=== PATIENT | female | born 1950 | race Caucasian/White ===

== ENCOUNTER 2018-11-06 11:23 | Inpatient (IN) ==
--- NOTE | 2018-11-06 14:11 | PROVIDER DOCUMENTATION ---
HPI-Headache - General Chief Complaint: Neck Pain Stated Complaint: NEEDS MORE TESTING DR JO-ANN HAYES Time Seen by Provider: 11/06/18 13:22 Source: patient Allergies/Adverse Reactions: Patient Allergies Allergy/AdvReac Type Severity Reaction Status Date / Time No Known Allergies Allergy Verified 09/18/12 06:17 Home Medications: Home Medication List Medication Instructions Recorded Confirmed Last Taken Type ENALApril [Vasotec] 5 mg PO HS #0 tablet 09/22/12 06/18/13 06/17/13 Rx Warfarin [Coumadin] 3 mg PO QHS 06/18/13 06/18/13 06/17/13 History Lactobacillus Rhamnosus GG 1 each PO BID #0 capsule 06/21/13 Unknown Rx [Culturelle] Metronidazole [Flagyl] 500 mg PO TID #0 tablet 06/21/13 Unknown Rx Sod Phos Di, Hooker/K Phos Hooker 250 mg PO Q6HR #0 tablet 06/21/13 Unknown Rx [K-Phos Neutral Tablet] Vancomycin [Vancocin] 125 mg PO Q6HR #0 capsule 06/21/13 Unknown Rx - History of Present Illness-Headache Nature of Presenting Problem: THIS IS A 67 YEAR OLD FEMALE WITH MEDICAL HISTORY OF HYPERTENSION, BREAST CANCER STAGE 4 WITH PORT ON COUMADIN WAS INSTRUCTED BY CLINIC TO COME IN TODAY TO RULE OUT MENINGITIS. PATIENT STATES SHE HAS BEEN HAVING NECK AND HEADACHE FOR THE PAST 3 DAYS AND WAS JUST NOW DIAGNOSED WITH SINUSITIS AND WAS GIVEN AN ANTIBIOTICS SHOT. PATIENT DENIES FEVER, CHILL, BLURRY VISION, EAR PAIN, RHINORRHEA, SORE THROAT, CHEST DISCOMFORT, PALPITATION, DYSPNEA, ABDOMINAL DISCOMFORT, NAUSEA, VOMITING, DIARRHEA, CONSTIPATION, MYALGIA, ARTHRALGIA NEW, RASH/LESION, AND HEAT OR COLD INTOLERANCE. Review of Systems - Adult - REVIEW OF SYSTEMS - ADULT Constitutional: reports: no symptoms reported, see HPI Eyes: reports: no symptoms reported, see HPI Ears, Nose, Mouth & Throat: reports: no symptoms reported, see HPI Cardiovascular: reports: no symptoms reported, see HPI Respiratory: reports: no symptoms reported, see HPI Gastrointestinal: reports: no symptoms reported, see HPI Genitourinary: reports: no symptoms reported, see HPI Musculoskeletal: reports: no symptoms reported, see HPI, neck pain Integumentary: reports: no symptoms reported, see HPI Neurological: reports: headache/migraines Psychiatric: reports: no symptoms reported, see HPI Endocrine: reports: no symptoms reported, see HPI Hematologic/Lymphatic: reports: no symptoms reported, see HPI Allergic/Immunologic: reports: no symptoms reported, see HPI Past History - Adult - PAST MEDICAL HISTORY-ADULT Review of Records: reports: Old Records Reviewed Physical Exam- Neurological - Physical Exam-Neuro Initial Vital Signs Reviewed: Yes General Appearance: alert, mild distress Eye Exam: bilateral eye: normal inspection, PERRL, EOMI HENMT: normocephalic/atraumatic, moist mucous membranes, normal ENT inspection Head Injury: no evidence of injury. 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 Exam: normal hearing, normal speech, PERRL Neurologic: grossly normal Integumentary: normal color, normal turgor, warm/dry Psych/Mental Status: normal mood/affect, normal thought content, normal thought process, oriented x 3 - Glascow Coma Scale Best Eye Response: (4) open spontaneously Best Verbal Response: (5) oriented Best Motor Response: (6) obeys commands Progress - PLAN OF CARE/RESULTS Progress/Plan/Lab Results: Vital Signs - 8 hr 11/06/18 11:37 Temperature 98.6 F Pulse Rate 89 Respiratory Rate 16 Blood Pressure 147/80 O2 Sat by Pulse Oximetry 98 Laboratory Results - last 24 hr 11/06/18 11/06/18 11/06/18 14:12 14:12 14:40 WBC 6.96 RBC 4.81 Hgb 13.8 Hct 41.6 MCV 86.5 MCH 28.7 MCHC 33.2 RDW Std Deviation 14.2 Plt Count 257 MPV 9.9 Immature Gran % (Auto) 0.3 Neut % (Auto) 53.7 Lymph % (Auto) 28.6 Hooker % (Auto) 14.7 H Eos % (Auto) 2.3 Baso % (Auto) 0.4 Immature Gran # (Auto) 0.02 Neut # (Auto) 3.74 Lymph # (Auto) 1.99 Hooker # (Auto) 1.02 H Eos # (Auto) 0.16 Baso # (Auto) 0.03 PT INR PTT (Actin FS) Sodium 136 Potassium 4.5 Chloride 98 Carbon Dioxide 24 L Anion Gap 14 BUN 17 Creatinine 0.9 Estimated GFR/1.73 m2 > 60 BUN/Creatinine Ratio 19 Glucose 78 Calculated Osmolality 272 Calcium 9.5 Total Bilirubin 0.28 AST 22 ALT 16 Alkaline Phosphatase 77 Total Protein 6.8 Albumin 4.2 Globulin 2.6 Albumin/Globulin Ratio 1.6 Urine Source CLEAN CATCH Urine Color YELLOW Urine Turbidity CLEAR Urine pH 6.5 Ur Specific [place] 1.009 Urine Protein NEGATIVE Ur Glucose (Stick) NEGATIVE Ur Ketones (Stick) 10 A Urine Blood NEGATIVE Urine Nitrite NEGATIVE Urine Bilirubin NEGATIVE Urobilinogen Dipstick NORMAL Urine Leukocytes TRACE A Urine WBC (Auto) <10 Urine RBC (Auto) <10 U Epithel Cells (Auto) <10 Urine Bacteria (Auto) NEGATIVE Fluid Source Fluid Appearance Fluid WBC Fluid RBC CSF Glucose CSF Total Protein 11/06/18 11/06/18 11/06/18 14:40 16:05 16:05 WBC RBC Hgb Hct MCV MCH MCHC RDW Std Deviation Plt Count MPV Immature Gran % (Auto) Neut % (Auto) Lymph % (Auto) Hooker % (Auto) Eos % (Auto) Baso % (Auto) Immature Gran # (Auto) Neut # (Auto) Lymph # (Auto) Hooker # (Auto) Eos # (Auto) Baso # (Auto) PT 13.6 INR 0.97 PTT (Actin FS) 40.7 Sodium Potassium Chloride Carbon Dioxide Anion Gap BUN Creatinine Estimated GFR/1.73 m2 BUN/Creatinine Ratio Glucose Calculated Osmolality Calcium Total Bilirubin AST ALT Alkaline Phosphatase Total Protein Albumin Globulin Albumin/Globulin Ratio Urine Source Urine Color Urine Turbidity Urine pH Ur Specific [place] Urine Protein Ur Glucose (Stick) Ur Ketones (Stick) Urine Blood Urine Nitrite Urine Bilirubin Urobilinogen Dipstick Urine Leukocytes Urine WBC (Auto) Urine RBC (Auto) U Epithel Cells (Auto) Urine Bacteria (Auto) Fluid Source * Fluid Appearance CLEAR Fluid WBC 7 Fluid RBC 0 CSF Glucose 51 CSF Total Protein 11/06/18 16:05 WBC RBC Hgb Hct MCV MCH MCHC RDW Std Deviation Plt Count MPV Immature Gran % (Auto) Neut % (Auto) Lymph % (Auto) Hooker % (Auto) Eos % (Auto) Baso % (Auto) Immature Gran # (Auto) Neut # (Auto) Lymph # (Auto) Hooker # (Auto) Eos # (Auto) Baso # (Auto) PT INR PTT (Actin FS) Sodium Potassium Chloride Carbon Dioxide Anion Gap BUN Creatinine Estimated GFR/1.73 m2 BUN/Creatinine Ratio Glucose Calculated Osmolality Calcium Total Bilirubin AST ALT Alkaline Phosphatase Total Protein Albumin Globulin Albumin/Globulin Ratio Urine Source Urine Color Urine Turbidity Urine pH Ur Specific [place] Urine Protein Ur Glucose (Stick) Ur Ketones (Stick) Urine Blood Urine Nitrite Urine Bilirubin Urobilinogen Dipstick Urine Leukocytes Urine WBC (Auto) Urine RBC (Auto) U Epithel Cells (Auto) Urine Bacteria (Auto) Fluid Source * Fluid Appearance Fluid WBC Fluid RBC CSF Glucose CSF Total Protein 30.2 Orders Category Date Time Status Nursing [place] [place] DIRECTED Care 11/06/18 13:[address] HEAD W/O CONTRAST [CT] Stat Exams 11/06/18 18:[address] MAXILLOFACIAL(SINUS) W/O CO [CT] Stat Exams 11/06/18 18:27 Ordered ANAEROBIC CULTURE [RM] Stat Lab 11/06/18 18:13 Uncollected BLOOD CULTURE [BLDCUL] Stat Lab 11/06/18 14:40 Results CBC WITH ELECTRONIC DIFF [HEME] Stat Lab 11/06/18 14:40 Completed COMPREHENSIVE METABOLIC PANEL [CHEM] Stat Lab 11/06/18 14:12 Completed CRYPTOCOCCAL ANTIGEN -CSF [HH] Stat Lab 11/06/18 16:05 Received CSF COUNT [CELL CNT] Stat Lab 11/06/18 16:05 Completed GLUCOSE CSF [BF CHEM] Stat Lab 11/06/18 16:05 Completed GRAM STAIN [DIREX] Stat Lab 11/06/18 16:05 Received HERPES SIMPLEX VIRUS PCR CSF [COSTA] Stat Lab 11/06/18 16:05 Received MENINGITIS ENCEPHALITIS CSF [HH] Stat Lab 11/06/18 16:05 Received PROTEIN CSF [BF CHEM] Stat Lab 11/06/18 16:05 Completed PT [PROTIME WITH INR] [COAG] Stat Lab 11/06/18 14:40 Completed PTT [COAG] Stat Lab 11/06/18 14:40 Completed URINALYSIS W/POSS RFLX CULT [URINALYSIS] Stat Lab 11/06/18 14:12 Completed URINE CULTURE [] Routine Lab 11/06/18 14:41 Received VDRL CSF [SHICKLEY] Stat Lab 11/06/18 16:05 Received Ampicillin 2 gm/Ns Med 11/06/18 16:16 Discontinued 2 gm in 100 ml IV NOW CefTRIAXONE [Rocephin] 2 gm Med 11/06/18 16:17 Discontinued 0.9% Sodium Chloride Inj [Ns] 50 ml IV NOW Lidocaine 1% [Xylocaine 1%] Med 11/06/18 15:31 Discontinued 50 ml INJ NOW ONE Pharmacy Order [Vancomycin IV Per Pharmacy] Med 11/06/18 16:30 Active 1 each MISC DIRECTED Vancomycin 1,500 mg Med 11/06/18 17:00 Active 0.9% Sodium Chloride Inj [Ns] 250 ml IV ONCE Result Diagrams: 11/06/18 14:40 11/06/18 14:12 - REASSESSMENT Reassessment #1 Time Reassessed: 18:22 Status: other (STIFF NECK WITH BRUDZINSKI AND CSF WITH WBC OF 7MM3 (NORMAL RANGE 0-5MM3); PATIENT WAS STARTED ON AMP/CEF/VAN IMMEDIATELY AFTER LP; WILL CALL HOSPITALIST.) Reassessment #2 Time Reassessed: 18:28 Status: other (APPRECAITE HOSPITALIST ASSITSANC.E) Procedures - LUMBAR PUNCTURE Procedure, Risk, Benefits and Alternatives discussed with:: Patient Consent Form Signed?: Yes Time-Out Verification Completed?: Yes Patient Position: Lying in position Insertion Site: L4-5 Site Prep: Betadine Anesthetic: 1%, Lidocaine/Xylocaine Volume of Anesthetic (ml's): 5 Procedure Successful?: Yes (PERFORMED BY DR. PANG AND DR. BAEZ.) Departure - Departure Date of Disposition Decision: 11/06/18 Time of Disposition Decision: 18:28 DIAGNOSIS: Bacterial meningitis Disposition: ADMITTED INPATIENT 09 Certified Medical Emergency: Emergent Condition: Fair Referrals and Follow-Ups: None,PCP [Primary Care Provider] - - Critical Care Note This patient required my direct & personal management of CC.: No Attestation - Physician/ CHARLES Attestation Patient care was provided by Advanced Practice Provider:: No The physician spent face to face time with patient:: Yes Advanced Practice Provider documentation review:: Supervising physician onsite and consulted in the evaluation and care of this patient. The physician did have a face to face encounter with the patient.
[2018-11-06 14:31] LABS: URINE SOURCE CLEAN CATCH
[2018-11-06 14:38] LABS: BILIRUBIN URINE NEGATIVE (NEGATIVE); BLOOD URINE NEGATIVE (NEGATIVE); COLOR YELLOW; GLUCOSE URINE NEGATIVE (NEGATIVE); KETONE URINE 10 mg/dL (NEGATIVE); LEUKOCYTES URINE TRACE (NEGATIVE); NITRITE URINE NEGATIVE (NEGATIVE); PH URINE 6.5; PROTEIN URINE NEGATIVE (NEGATIVE); SP GRAVITY URINE 1.009; TURBIDITY URINE CLEAR (CLEAR); UROBILINOGEN URINE NORMAL (NORMAL)
[2018-11-06 14:41] LABS: UR EPITHELIAL CELLS <10 /HPF (<10); URINE BACTERIA NEGATIVE /HPF; URINE RBC <10 /HPF (<10); URINE WBC <10 /HPF (<10)
[2018-11-06 14:54] LABS: BASO# 0.03 X1000 (0.0-0.2); BASO% 0.4 % (0.0-0.8); EOS# 0.16 X1000 (0.0-0.7); EOS% 2.3 % (0.0-10.0); HEMATOCRIT 41.6 % (37.0-47.0); HEMOGLOBIN 13.8 g/dL (12.0-16.0); IMM GRAN# 0.02 X1000 (0.0-0.04); IMM GRAN% 0.3 % (0.0-0.5); LYMPH# 1.99 X1000 (1.2-3.4); LYMPH% 28.6 % (20.5-51.1); MCH 28.7 PG (27-31); MCHC 33.2 g/dL (33-37); MCV 86.5 FL (81-99); MONO# 1.02 X1000 (0.11-0.59); MONO% 14.7 % (1.7-9.3); MPV 9.9 FL (7.4-10.4); NEUT# 3.74 X1000 (1.4-6.5); NEUT% 53.7 % (42.2-75.2); PLT 257 X1000 (130-400); RBC 4.81 XMIL (4.2-5.4); RDW 14.2 % (11.5-14.5); WBC 6.96 X1000 (4.8-10.8)
[2018-11-06 15:00] LABS: INR 0.97; PROTIME 13.6 Seconds (11.0-16.0)
[2018-11-06 15:01] LABS: PTT 40.7 Seconds (22.3-41.8)
[2018-11-06 15:05] LABS: AGAP 14; ALB/GLOB RATIO 1.6; ALBUMIN 4.2 g/dL (3.5-5.0); ALKALINE PHOSPHATASE 77 U/L (32-104); BUN 17 mg/dL (8-22); CALCIUM 9.5 mg/dL (8.8-10.2); CHLORIDE 98 mmol/L (98-107); COSMO 272; CREATININE 0.9 mg/dL (0.5-0.9); ESTIMATED GFR > 60; GLUCOSE 78 mg/dL (70-104); GOT 22 U/L (10-30); GPT 16 U/L (10-36); POTASSIUM 4.5 mmol/L (3.5-5.1); SODIUM 136 mmol/L (136-145); TCO2 24 mmol/L (25-35); TOTAL BILIRUBIN 0.28 mg/dL (0.20-1.00); TOTAL PROTEIN 6.8 g/dL (6.3-8.3)
[2018-11-06] MEDS ORDERED: XYLOCAINE 1% INJ ONE (15:31)
[2018-11-06] MEDS ORDERED: AMPICILLIN 2 GM/NS 2 GM/100 ML IVPB IV ONE (16:16)
[2018-11-06] MEDS ORDERED: ROCEPHIN 2 GM in NS 50 ML IV ONE (16:17)
[2018-11-06] MEDS ORDERED: VANCOMYCIN IV PER PHARMACY MISC SCH (16:30)
[2018-11-06] MEDS ORDERED: VANCOMYCIN 1,500 MG in NS 250 ML IV ONE (17:00)
[2018-11-06 17:10] LABS: APPEARANCE CLEAR; RBC BF 0 /cumm
[2018-11-06 17:11] LABS: WBC BF 7 /cumm
[2018-11-06 17:17] LABS: GLUCOSE CSF 51 mg/dL (39-75)
[2018-11-06 17:20] LABS: PROTEIN CSF 30.2 mg/dL (15-45)
[2018-11-06] MEDS ORDERED: MAXIPIME 2 GM in NS 100 ML IV ONE (18:58)
--- NOTE | 2018-11-06 20:03 | Diag Imaging Result Doc PS360 ---
CT HEAD W/O CONTRAST, CT MAXILLOFACIAL(SINUS) W/O CO - 11/06/2018 INDICATION: SINUS INFECTION AND MENINGITIS COMPARISON: None FINDINGS: Head CT: The ventricles and sulci are normal in size and contour. No intracranial mass or hemorrhage. The skull is intact. The sinuses, mastoids, and middle ears are clear. Cervical spine: There is chronic appearing deformity of the nasal bones. Negative sinuses no acute fractures. IMPRESSION: Negative exam. This exam was performed using automated exposure control, adjustment of mA or kV according to patient size, and/or use of iterative reconstruction technique Electronically signed by Uriel Siddiqui 11/06/2018 8:01 PM
[2018-11-06] MEDS ORDERED: ZOFRAN IV PRN (20:14)
[2018-11-06] MEDS: NS 1,000 ML IV SCH (20:40)
[2018-11-06] MEDS: NORCO-7.5 PO PRN (20:45)
[2018-11-06] MEDS: FLEXERIL PO SCH (20:45)
[2018-11-06] MEDS: PROTONIX IV SCH (20:45)
[2018-11-06] MEDS: SODIUM CHLORIDE 0.9% INJ SCH (20:45)
[2018-11-06] MEDS ORDERED: MAXIPIME 1 GM in NS 50 ML IV SCH (20:53)
[2018-11-06] MEDS: CULTURELLE PO SCH (22:50)
[2018-11-06] MEDS: VASOTEC PO SCH (22:50)
[2018-11-06] MEDS: COUMADIN PO SCH (22:50)
[2018-11-07 04:58] LABS: BASO# 0.03 X1000 (0.0-0.2); BASO% 0.5 % (0.0-0.8); EOS# 0.17 X1000 (0.0-0.7); EOS% 2.7 % (0.0-10.0); HEMATOCRIT 37.3 % (37.0-47.0); HEMOGLOBIN 12.4 g/dL (12.0-16.0); LYMPH# 1.89 X1000 (1.2-3.4); LYMPH% 30.2 % (20.5-51.1); MCHC 33.2 g/dL (33-37); MCV 87.1 FL (81-99); MONO# 0.82 X1000 (0.11-0.59); MONO% 13.1 % (1.7-9.3); MPV 9.7 FL (7.4-10.4); NEUT# 3.35 X1000 (1.4-6.5); NEUT% 53.5 % (42.2-75.2); PLT 224 X1000 (130-400); RBC 4.28 XMIL (4.2-5.4); WBC 6.26 X1000 (4.8-10.8)
[2018-11-07 05:01] LABS: INR 1.02; PROTIME 14.3 Seconds (11.0-16.0)
[2018-11-07 05:23] LABS: AGAP 7; ALB/GLOB RATIO 1.3; ALBUMIN 3.3 g/dL (3.5-5.0); ALKALINE PHOSPHATASE 61 U/L (32-104); BUN 19 mg/dL (8-22); CALCIUM 8.6 mg/dL (8.8-10.2); CHLORIDE 103 mmol/L (98-107); COSMO 275; CREATININE 0.8 mg/dL (0.5-0.9); ESTIMATED GFR > 60; GLUCOSE 83 mg/dL (70-104); GOT 14 U/L (10-30); GPT 12 U/L (10-36); POTASSIUM 4.1 mmol/L (3.5-5.1); SODIUM 137 mmol/L (136-145); TCO2 27 mmol/L (25-35); TOTAL BILIRUBIN 0.15 mg/dL (0.20-1.00); TOTAL PROTEIN 5.9 g/dL (6.3-8.3)
[2018-11-07] MEDS: FLEXERIL PO SCH ×3 (05:50→21:11)
[2018-11-07] MEDS: NORCO-7.5 PO PRN ×3 (05:52→19:38)
--- NOTE | 2018-11-07 06:59 | HISTORY AND PHYSICAL ---
DATE: 11/06/2018 PRIMARY CARE PHYSICIAN: (Dr. Morrow; however, he has not seen this provider in over 4 years). GASKET INSPECTOR/ONCOLOGIST: Dr. Nichols. PRESENTING COMPLAINT: Chills, neck pain and headaches. HISTORY OF PRESENTING COMPLAINT: Ms. Whyte is a 67-year-old female with a history of left breast cancer status post mastectomy and currently on weekly Herceptin, follows up with Dr. Nichols. She seems to have been in her regular state of health until about a week now, she started having chills and runny nose, she thought she was coming down with the flu. Subsequently she started having also neck pain. According to Ms. Whyte, the neck pain became progressively severe that she had to come to the ER for investigations. She said the neck pain was stiff, it fell like some cramping, it occasionally radiated to the back of her head giving her sensation of headaches. She said both the neck pain and the headaches went up to about 10/ 10. It is made worse with neck movement, but not with any light. She took ibuprofen which did not make any improvement. She also said she had some remote nausea sensation as well as throat pain. Ms. Whyte herself was pretty much all over the place in terms of her symptomatology; however, I think the main issue is that she has been having neck pains and did have preceding viral type of illness. The patient presented to the emergency department, she was evaluated they thought there could be some possible meningitis, so an LP was done, only 7 WBC was reported. PAST MEDICAL HISTORY: 1. Left breast cancer status post mastectomy. 2. Hypertension. 3. Sinusitis. PAST SURGICAL HISTORY: 1. Left mastectomy with reconstruction surgery. 2. Port placement. 3. Right lower lung lobectomy for metastatic breast cancer. HOME MEDICATIONS: Include enalapril 5 mg daily, and Coumadin 3 mg. SOCIAL HISTORY: The patient denies any tobacco use or illicit drug use. REVIEW OF SYSTEMS: Fourteen point review of system conducted with Ms. Whyte is unremarkable except what we have in the HPI. Specifically, she denies any chest pain. No cough, no expectoration. No abdominal pain, no diarrhea and no urinary symptoms. She does, however, state her throat was hurting some. PHYSICAL EXAMINATION: Vital Signs: Blood pressure is currently 189/81, pulse is 86, respiration is 16, temperature is 98.6 degrees. General: Ms. Whyte is a 67-year-old female. She was in bed. No distress. HEENT: Mucosa is pink and moist. Anicteric. Acyanotic. Neck: Supple. There was no JVD. Trachea was midline. No thyromegaly. HEENT: Head is normocephalic and atraumatic. There is however some tenderness palpating the posterior neck especially over C6- C7. There is also remarkable paraspinal muscle spasms and tenderness. Chest/ Respiratory: There is good air entry bilaterally. No crepitations. No rhonchi. There is no accessory muscle use. Cardiovascular: Regular rate and rhythm. No murmurs, no rubs, no gallops. Gastrointestinal: Abdomen is soft, is nontender. Bowel sounds are present. There is no hepatosplenomegaly. Extremities: No pedal edema. Distal pulses present. Chest wall positive for right upper chest port in place. Inside the mouth I did not see any tonsil swelling or erythematous changes. Central Nervous System: The patient is awake, alert, and oriented. Executive function seems to be intact. Motor is 5/5 in all extremities. Sensation is intact. I did not explore cerebellar function. Psychiatric: The patient is a little anxious, but very cooperative and seems to have very good judgment and insight. The daughter was at the bedside at the time of the encounter. LABORATORY DATA: WBC is 6.96, hemoglobin is 13.8, platelet count of 257,000. Chemistry is also reviewed. Sodium is 136, potassium is 4.5, chloride 98, bicarbonate is 24. CSF analysis shows WBC 7, RBCs 0, glucose is 51, and total protein is 30. I did not see any differentials on the WBC. IMAGING STUDIES: A CT scan of the head is negative. A maxillofacial CT scan is negative. ASSESSMENT: Ms. Whyte is a 67-year-old female with a history of remote breast cancer on weekly Herceptin, comes in with about a week history of generalized weakness , chills and neck pain. Initial assumption was meningitis; however, after a thorough physical examinations and investigations I think she probably has cervical spondylosis with paraspinal muscle spasm. It is also plausible to continue investigating possibility of meningitis. 1. Suspected meningitis. So far the fluid analysis is quite inconclusive and I do not think its a bacterial meningitis. There is still a possibility that it could be a viral meningitis; however, the white cell count on cerebrospinal fluid is remarkably low for anything. In any case, Infectious Disease has been consulted. We started the patient on antibiotics and we will await for Infectious Disease to evaluate the patient. 2. Cervicalgia with cervical paraspinal muscle tenderness. I think the patient does have musculoskeletal pain which is probably playing more to her symptomatology than an underlying infection. She probably has a cervical spondylosis, which has gotten worse. She would need a CT scan of the cervical spine to rule out any other possibilities. We will do this tomorrow morning. 3. History of breast cancer on weekly Herceptin. We will get her oncology Dr. Nichols notified. 4. Uncontrolled hypertension. The patient has been started on her enalapril and we will continue titrating this. We will also add another agent if it does not get better control. 5. History of situational anxiety noted. PLAN: So in general, Ms. Whyte is going to be admitted to the medical floor. She still will be under respiratory precautions until we finally rule in or out the diagnosis of meningitis. She is currently on antibiotics. ID has been consulted. We will also consult her oncologist, and we will follow up with the cultures. She is going to be on her Coumadin for DVT prophylaxis. She is also going to be on PPI for GI prophylaxis, and gentle hydration overnight. We will modify and give further recommendations as other data become available. cc: Pedro Abdi MD MTDD
[2018-11-07] MEDS ORDERED: MAXIPIME 1 GM in NS 50 ML IV SCH (08:15)
--- NOTE | 2018-11-07 09:15 | INFECTIOUS DISEASE CONSULT REP ---
DATE: 11/07/2018 CONCLUSION: The patient may have meningitis. RECOMMENDATION: Treat with vancomycin, cefepime and ampicillin pending lab results. DISCUSSION: The patient, for 6 to 8 weeks, has intermittently had some headaches and neck pain. She does not remember having fever. In the past 4 days, it became very intense , and she came to the emergency room. A spinal tap was done. It showed that there were 7 white cells, the glucose was 51, and the protein was 30. CT scan of the sinuses was negative. CT scan of the head also was negative. The patient, this morning, seems to be having less pain. She did not have a fever during the night. PAST MEDICAL HISTORY/REVIEW OF SYSTEMS: Eyes and Ears: The patient does not have any problems hearing or seeing. Neck: See present illness. Respiratory: No cough or shortness of breath. Cardiac: No chest pain or palpitations. GI: No nausea, vomiting, or diarrhea. : No dysuria or flank pain. Endocrine: The patient does not have diabetes or thyroid problems. Neurologic: See present illness. EVENT STAFF HISTORY: She is a 3, para 3, AB 0. She has had a tubal ligation. PREVIOUS HOSPITALIZATIONS/OPERATIONS: She has had bilateral mastectomies and reconstruction. She has been admitted with Clostridium difficile. She has had removal of part of her right lung because of breast cancer that metastasized to the lung. She has had two Port-A- Caths placed. The current one is on the right side. MEDICAL DISEASES: Positive for breast cancer, which is metastatic, and hypertension. INFECTIOUS DISEASE HISTORY: Positive for pneumonia and UTI. The patient also has had Clostridium difficile diarrhea. FAMILY HISTORY: Positive for diabetes mellitus, hypertension, and cancer. SOCIAL HISTORY: [place] She is a . She lives alone. She has a dog as a pet. She does not have any allergies. She occasionally smokes cigarettes and drinks wine. She does not abuse drugs. She is retired. ALLERGIES: The patient has no known drug allergies. MEDICATIONS: Medications taken at home include the following: Vasotec, Culturelle, Flagyl, vancomycin, and Coumadin. PHYSICAL EXAMINATION: Vital Signs: Temperature is 98 degrees, pulse 80, respirations 12, blood pressure 120/50. The patient is 5 feet 6 inches tall, weighs 138 pounds. General: This is a healthy-appearing, elderly female. She is in no acute distress at this time. HEENT: She can hear my spoken words and see near objects. Sinuses are not tender. She does not have any white coating on her tongue. Neck: She can move her neck fairly well. It is a little bit painful for her. I did not palpate any masses or lymphadenopathy in the neck. Lungs: Clear to auscultation. Cardiovascular: Heart rate is regular. Thorax: The patient has a Port-A-Cath present on the right side. There is no erythema or drainage coming from it, and the site also is not tender. Lungs: Clear to auscultation. Cardiovascular: Heart rate is regular. I did not hear any murmurs. Abdomen: Soft and nontender. Neurologic: The patient is alert. She can move her extremities. There is no tremor. Her sensation is intact to touch. Her memory as regarding her medical history is intact. Integument: No rash seen. CONCLUSION: The patient was admitted to the hospital with neck pain and chills and headache. Her cerebrospinal fluid has 7 white cells in it. The protein is not elevated, and the glucose is not low. I think it is doubtful that the patient has meningitis, but I cannot rule it out for certain. RECOMMENDATIONS: I agree with giving the patient antibiotics. I was called last night, and I told the physician that I would suggest ordering vancomycin, cefepime, and ampicillin, which I have done today by increasing the dose of cefepime and ordering ampicillin. I have also ordered a chest x-ray and x-ray of the cervical spine, and I have started the patient on ampicillin intravenously. Thank you for the consult. cc: Vamsi Arias MD [facility]
--- NOTE | 2018-11-07 09:31 | HEMO/ONC CONSULTATION ---
DATE: 11/07/2018 CHIEF COMPLAINT: We have been consulted for further management. The patient has metastatic breast cancer. HISTORY OF PRESENT ILLNESS: Ms. Whyte is a 67-year-old female that presented to the emergency department complaining of severe neck and headache that has been going on for the past 3 days. The patient was recently diagnosed with sinusitis and given antibiotics per primary care provider. The patient denied any fevers. Patient had some chills over the past few days. Patient thought she was developing the flu. The patient denies any shortness of breath. No nausea, no vomiting, no diarrhea. Due to having severe neck pain with headache, the patient had a lumbar puncture performed while in the emergency department, and was admitted for possible bacterial meningitis and further evaluation at that time. The patient is well known to us in our clinic where she follows up for metastatic breast cancer. She is on weekly Herceptin. The patient has had bilateral mastectomies with reconstruction in 2000. She had DCIS of left breast cancer status post mastectomy reconstruction in October 2005. She had metastasis with solitary right lung nodule status post lobectomy. It was ER/WA negative, HER-2/DEBORAH positive, status post AC and Taxol. The patient began Herceptin in May 2006. She had a catheter-related SVC in August 2012 and she has been on Coumadin for prophylaxis. The patient has been asymptomatic. No evidence of disease for quite some time. Her last dose of Herceptin was given on 11/04/2018. PAST MEDICAL HISTORY: 1. Metastatic breast cancer. 2. Hypertension. 3. Sinusitis. PAST SURGICAL HISTORY: 1. Bilateral mastectomy with breast reconstruction. 2. Port placement. 3. Right lower lung lobectomy due to metastatic cancer. SOCIAL HISTORY: Patient denies any tobacco, alcohol or illicit drug use. FAMILY HISTORY: Noncontributory. HOME MEDICATIONS: Vasotec, Culturelle, Flagyl, Coumadin. REVIEW OF SYSTEMS: Negative as mentioned in HPI. PHYSICAL EXAM: Vital Signs: Temperature 98.6 degrees, heart rate 72, blood pressure 128/49, satting 94% on room air. General: Patient is awake, lying in bed. Complained of increased amounts of neck pain and headache. HEENT: Anicteric. Pupils PERRLA. Mucous membranes moist. Neck: Supple. No JVD. Trachea is midline. She also has some tenderness palpating the posterior neck. Lymph node survey: No palpable lymphadenopathy. Chest: Bilateral breath sounds. Clear to auscultation. Cardiovascular: S1, S2. Regular rate and rhythm. Abdomen: Soft, nontender. Bowel sounds present in all 4 quadrants. No hepatosplenomegaly noted. Skin: Warm, dry, and intact. No petechiae, no clubbing, no rashes, no cyanosis. Neurologic: Alert and oriented x3. No focal deficits noted. LABORATORY DATA: White blood cell count 6.26, hemoglobin 12.4, hematocrit 37.3 , platelets are 224. Potassium 4.1, BUN 19, creatinine 0.8. RADIOLOGICAL RESULTS: CT of the head normal. Maxillofacial CT is a negative exam. ASSESSMENT AND PLAN: 1. Metastatic breast cancer to the lung: The patient has been without any evidence of disease clinically for quite some time. Tumor markers count has been within normal limits. The patient has been on Herceptin weekly. Her last dose was given on 2018. The patient has been tolerating Herceptin very well. Once patient is discharged, we will continue her weekly Herceptin. Continue to monitor. 2. Possible meningitis: Infectious Disease has been consulted continue antibiotics per their recommendations. 3. Severe headache and neck pain: Continue pain management per primary medical team. 4. Hypertension: Continue home medications. Continue recommendations per patient's primary medical team. Plan of care discussed with Dr. Nichols. Dictated by QUINCY Hendrix for Duong Nichols MD cc: QUINCY Hendrix MD [facility]
--- NOTE | 2018-11-07 11:01 | Diag Imaging Result Doc PS360 ---
CHEST-2 VIEWS - 11/07/2018 INDICATION: pneumonia COMPARISON: 09/16/2012 FINDINGS: Stable right chest port in good position. Stable bilateral breast implants. Stable lymph node dissection clips in the left axilla. There is a stable dense area of pleural-based scarring at the right apex. No infiltrates. No pneumothorax or pleural effusion. Heart size is top normal. IMPRESSION: No acute disease or change from prior. Electronically signed by Uriel Siddiqui 11/07/2018 10:59 AM
--- NOTE | 2018-11-07 11:13 | Diag Imaging Result Doc PS360 ---
EXAM: CERVICAL SPINE 2-VIEWS 11/07/2018 HISTORY: neck pain TECHNIQUE: Cervical spine AP and lateral COMMENT: There is anterior osteophyte at the C4-5 level and posterior and anterior osteophyte formation with disc space narrowing at C5-6 and C6-7. There is uncovertebral arthropathy particularly at the C4-5 and C5-6 levels. Hypertrophic facet disease is present at C3-4 on the left. IMPRESSION: Degenerative changes as described. No evidence of acute bony disease. Electronically signed by Dread Goldberg 11/07/2018 11:11 AM
[2018-11-07] MEDS: CULTURELLE PO SCH ×2 (11:19→21:12)
[2018-11-07] MEDS: AMPICILLIN 2 GM/NS 2 GM/100 ML IVPB IV SCH ×3 (11:19→22:36)
[2018-11-07] MEDS: NS 1,000 ML IV SCH (11:19)
[2018-11-07] MEDS: MAXIPIME 2 GM in NS 50 ML IV SCH ×2 (12:17→21:09)
[2018-11-07] MEDS ORDERED: AYR NASAL SPRAY NAS PRN (12:57)
[2018-11-07] MEDS: VANCOMYCIN 1 GM/NS 1 GM/250 ML IVPB IV SCH (13:36)
[2018-11-07] MEDS: COUMADIN PO SCH (21:11)
[2018-11-07] MEDS: VASOTEC PO SCH (21:11)
[2018-11-07] MEDS: SODIUM CHLORIDE 0.9% INJ SCH (21:11)
[2018-11-07] MEDS: PROTONIX IV SCH (21:11)
[2018-11-08] MEDS: VANCOMYCIN 1 GM/NS 1 GM/250 ML IVPB IV SCH (00:46)
[2018-11-08] MEDS: MAXIPIME 2 GM in NS 50 ML IV SCH (04:15)
[2018-11-08] MEDS: FLEXERIL PO SCH ×2 (04:15→16:47)
[2018-11-08] MEDS: AMPICILLIN 2 GM/NS 2 GM/100 ML IVPB IV SCH (05:06)
--- NOTE | 2018-11-08 05:11 | PROGRESS NOTE ---
DATE: 11/07/2018 SUBJECTIVE: She is complaining of a lot of pain in her neck, but overall she feels better. No headache. OBJECTIVE: Vital Signs: Blood pressure is 152/63, heart rate 72, respirations 16, temperature 98.1 degrees. Cardiovascular: Regular rate and rhythm. Pulmonary: Bilateral breath sounds. Clear to auscultation. Gastrointestinal: Soft, nontender, and nondistended. Bowel sounds are positive. PROBLEM LIST: 1. Possible meningitis. I think that is ruled out, I mean her CSF is negative and her markers in her CSF were really unremarkable. Infectious Disease is following. She is on very broad- spectrum antibiotics vancomycin, cefepime, and ampicillin, and her C-spine shows degenerative disease, chest x-ray is really unchanged. We will continue to follow for recommendations. If all that is negative we could potentially deescalate her therapy, but that will be up to Dr. Arias. She has no white count. She has not had any fever, and I think her complaints are more associated with cervical neuralgia or cervical radiculopathy. Her plain films do show degenerative joint disease. I am going to get a C-spine MRI tomorrow. Since she has a history of cancer we do need to rule out any epidural disease and things of that nature, but this may be just more routine radiculopathy and hopefully nothing to do with her malignancy. We will treat accordingly. 2. Hypertension appears to be stable. DISPOSITION: Pending her clinical status. cc: Sohan Schulz MD
[2018-11-08 06:14] LABS: BASO# 0.02 X1000 (0.0-0.2); BASO% 0.3 % (0.0-0.8); EOS# 0.24 X1000 (0.0-0.7); HEMATOCRIT 37.3 % (37.0-47.0); HEMOGLOBIN 12.3 g/dL (12.0-16.0); LYMPH# 1.49 X1000 (1.2-3.4); LYMPH% 24.7 % (20.5-51.1); MONO# 0.84 X1000 (0.11-0.59); MONO% 13.9 % (1.7-9.3); NEUT# 3.45 X1000 (1.4-6.5); NEUT% 57.1 % (42.2-75.2); PLT 227 X1000 (130-400); RBC 4.24 XMIL (4.2-5.4); RDW 14.2 % (11.5-14.5); WBC 6.04 X1000 (4.8-10.8)
[2018-11-08 06:45] LABS: AGAP 8; BUN 17 mg/dL (8-22); CALCIUM 8.2 mg/dL (8.8-10.2); CHLORIDE 105 mmol/L (98-107); COSMO 279; CREATININE 0.8 mg/dL (0.5-0.9); ESTIMATED GFR > 60; GLUCOSE 98 mg/dL (70-104); POTASSIUM 4.2 mmol/L (3.5-5.1); SODIUM 139 mmol/L (136-145); TCO2 26 mmol/L (25-35)
--- NOTE | 2018-11-08 10:13 | INFECTIOUS DISEASE PROGRESS NO ---
DATE: 11/08/2018 PRESENT ILLNESS: The patient has had a workup for possible meningitis due to neck pain and stiffness; however, at this point, everything is negative including the CSF meningitis/encephalitis panel by PCR. MEDICATIONS: She has been receiving Ampicillin 2 g IV every 6 hours, Cefepime 2 g IV every 8 hours and IV vancomycin per pharmacy dosing. PHYSICAL EXAMINATION: Vital Signs: Temperature is 98, pulse rate 70, respiratory rate 14, blood pressure 139/61. O2 saturation 97% on room air. General: This is a fairly healthy-appearing, elderly female. She is sitting up in the bed in no acute distress. HEENT: Atraumatic, normocephalic. Oral mucous membranes are pink and moist. Conjunctivae are pink. Neck has a decrease in suppleness. Trachea is midline. Cardiovascular: Heart rate is regular. Pedal and radial pulses are +2 bilaterally. Respiratory: Lung sounds are clear to auscultation, somewhat diminished in the bases. Abdomen soft, round and nontender. Bowel sounds are active. Neurologic: She is awake, alert, and oriented. Lower extremities are strong. She states her pain in her neck this morning has improved. However, there are sharp, shooting pains when she moves her head [id number] at times. No tremors are noted. LABORATORY AND X-RAY: Today, her white count is 6.04, hemoglobin 12.3, platelet count 227,000. Creatinine is 0.8. Estimated GFR is greater than 60. Her CSF meningitis encephalitis panel by PCR was negative. Also, the cryptococcal antigen was negative. The Gram stain of the cerebral spinal fluid showed no bacteria. So far, the CSF culture has shown no growth on the preliminary report. Blood cultures have also been without growth for 48 hours and the final report on the urine shows no growth. No imaging reports today. ASSESSMENT AND PLAN: Ms. Whyte has had some symptoms which made us concerned for the possibility of meningitis; however, this seems to have been ruled out. At this point, we will go ahead and discontinue her antibiotics. The plan today is for her to have an MRI of the C-spine. Due to lack of fever or leukocytosis, or any evidence of meningitis through lab or micro, we will go ahead and sign off but will be available on a p.r.n. basis. These plans have been discussed with and recommended by Dr. Arias. COMORBIDITIES: She is elderly with metastatic breast cancer. Dictated by QUINCY Cortés for Vamsi Arias MD This chart was documented by, QUINCY Cortés and accurately reflects the services performed, treatment plan and medical decisions as attested by the providers signature Vamsi Arias MD. cc: Vamsi Arias MD [facility]
--- NOTE | 2018-11-08 10:14 | HEMO/ONC PROGRESS NOTE ---
DATE: 11/08/2018 SUBJECTIVE: Patient continues to complain of increased amounts of pain to her neck and upper back. The patient's headache continues to improve though. OBJECTIVE: Vital Signs: Temperature of 98.0, heart rate 70, respiratory rate 14, blood pressure 139/61, saturating 97% on room air. General: Patient is awake, lying in bed , in no acute distress noted. HEENT: Anicteric. Pupils PERRLA. Mucous membranes moist. Cardiovascular: Normal S1, S2. Regular rate and rhythm. Chest: Breath sounds clear to auscultation. Abdomen: Soft, nontender. Bowel sounds present in all 4 quadrants. LABORATORY DATA: Blood cell count is 6.04, hemoglobin, hematocrit 37.3, platelets are 227. Potassium 4.2, BUN 17, creatinine 0.8. ASSESSMENT/PLAN: 1. Metastatic breast cancer of the lungs. The patient did very well with her treatments at this time. Once patient is discharged, she will continue on her weekly Herceptin. Continue to monitor. 2. Possible meningitis: Dr. Arias has been consulted. Continue antibiotics for his recommendations. 3. Headache and neck pain: Continue pain management per primary medical team. Dictated by QUINCY Hendrix for Duong Nichols MD cc: QUINCY Hendrix MD [facility] [place]
[2018-11-08] MEDS: NORCO-7.5 PO PRN ×2 (11:33→18:32)
[2018-11-08] MEDS: CULTURELLE PO SCH (11:34)
--- NOTE | 2018-11-08 11:48 | Diag Imaging Result Doc PS360 ---
MRI C-SPINE W/WO CONTRAST - 11/08/2018 INDICATION: cervical neuralgia COMPARISON: X-ray series from 11/07/2018 FINDINGS: Alignment is anatomic. Vertebral body heights are preserved. There is moderately advanced disc degeneration with disc space narrowing and osteophyte formation at C5-6 and C6-7. Bone marrow signal is normal. Brainstem and cervical cord are normal. No abnormal contrast enhancement. At C5-6, there is a predominantly right-sided disc bulge. This flattens the anterior right surface of the cervical cord. There is mild to moderate central canal stenosis. At C6-7 there is a diffuse posterior disc bulge contacting the cervical cord. There is mild central canal stenosis. IMPRESSION: Cervical spondylosis. No acute disease. Electronically signed by Uriel Siddiqui 11/08/2018 11:46 AM
[2018-11-08] MEDS ORDERED: MAXIPIME 2 GM in NS 100 ML IV SCH (12:00)
[2018-11-08 13:25] LABS: VDRL CSF SEE COMMENTS
[2018-11-08 14:18] VITALS: BP 138/61
[2018-11-08] MEDS ORDERED: PREDNISONE PO ONE (16:59)
[2018-11-08] MEDS ORDERED: TORADOL IV ONE (17:00)
--- NOTE | 2018-11-08 23:35 | DISCHARGE SUMMARY ---
ADMISSION DATE: 11/06/2018 DISCHARGE DATE: 11/08/2018 DISCHARGE DIAGNOSIS: Cervical radiculopathy and history of left breast cancer. She is a breast cancer patient currently on Herceptin coming in with acute neck pain and headache, neck was stiff and she had pain radiating in her neck. This somehow turned into a concern over meningitis which I not really sure, she had nuchal rigidity but there was not a clear evidence but she had lumbar puncture done which really was unremarkable. She had 7 white cells. Glucose was 51, total protein 30. Cultures have been negative. She was placed on broad-spectrum antibiotics until cultures returned and were all negative of course so she was taken off those medications. Cervical C-spine did show some significant degenerative changes. I went ahead and progressed with cervical MRI mostly because she has breast cancer and to make sure that there was not any diskitis or mass pushing on her spine and she had significant osteophyte and disk bulging at C5-C6 and C6-C7 with some mild central canal stenosis. We went ahead and treat her with steroids and anti-inflammatories and anticipate she will go back home. I recommend followup with [facility] [place]. If she has persistence in her symptoms return to the care of her PCP and she sees Dr. Nichols who saw her in consultation here. In any case patient is stable. I discharged her on Lodine 300 b.i.d., Medrol Dosepak, some Isaban 7.5 q.4 hours p.r.n. pain and Flexeril 10 t.i.d. p.r.n. spasms. DISCHARGE CONDITION: Stable. cc: Duong Nichols MD
== END 2018-11-08 18:54 | disposition home or self-care (01) | DRG 552 ==
LOC: ED 11:23 → EDIPHOLD 20:31 → SUATTDRO 20:31 → 4N 11-07 07:58
PROVIDERS: ATTEND Internal Medicine
CPT/HCPCS: 70450; 70486; 71020; 71046; 72040; 72156; 80048; 80053; 81001; 82945; 84157; 84443; 85025; 85610; 85730; 86403; 86592; 87040; 87070; 87088; 87205; 87496; 87529; 87532; 87653; 87798; 89050; 96361; 96365; 96367; 96375; 97110; 97162; 99285; A9270; A9579; C9113; J0290; J0692; J0696; J1885; J3370; J7030; J7050; J7506; J7512; S0164